=== PATIENT | male | born 1940 | race Caucasian/White ===

== ENCOUNTER 2020-01-30 10:47 | Outpatient (CLI) | payer MEDICARE, OTHER | END 2020-01-30 10:48 | disposition home or self-care (01) | LOC: CTENTCT 10:47 | PROVIDERS: ATTEND Specialist | DX: J32.1 Chronic frontal sinusitis (principal) | CPT/HCPCS: 70486 ==

== ENCOUNTER 2020-02-02 07:49 | Outpatient (CLI) | payer MEDICARE, OTHER ==
[2020-02-02 16:47] LABS: Hemoglobin 15.7 g/dL (14.0-18.0)
[2020-02-02 17:24] LABS: Anion Gap 15 mmol/L (10-20); BUN (Urea Nitrogen) 13 mg/dL (8.4-25.7); Calc. Creatinine Clearance 0 mL/min (70-130); Calcium 8.9 mg/dL (7.8-10.44); Carbon Dioxide 22 mmol/L (23-31); Chloride 102 mmol/L (98-107); Estimated GFR-MDRD Greater than 90; Glucose 97 mg/dL (83-110); Potassium 4.1 mmol/L (3.5-5.1); Sodium 135 mmol/L (136-145)
[2020-02-03 12:15] LABS: SARS-CoV-2 MS2 Positive; SARS-CoV-2 N Gene Negative; SARS-CoV-2 S Gene Negative; SARS-CoV-2 by NAA Not Detected (NotDetected); SARS-CoV-2 orf1ab Negative
== END 2020-02-02 07:50 | disposition home or self-care (01) ==
LOC: LABBT 07:49
PROVIDERS: ATTEND Specialist
DX: Z01.812 Encounter for preprocedural laboratory examination (principal); Z11.59 Encounter for screening for other viral diseases; J32.1 Chronic frontal sinusitis
CPT/HCPCS: 80048; 85014; 85018; 93005; U0003; 87635; 93010

== ENCOUNTER 2020-03-11 12:24 | Outpatient (CLI) | payer MEDICARE, OTHER ==
[2020-03-11] MEDS ORDERED: Iopamidol-370 76% 500 ML 1 ML ONE (13:32)
--- NOTE | 2020-03-11 14:50 | CT ---
CT arteriogram neck with IV contrast and 3-D imaging HISTORY: Carotid stenosis. Prior endarterectomy. FINDINGS: Calcification at the aortic arch with normal branching of the great vessels. Good flow into each carotid and vertebral system. 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 At the right carotid bifurcation, dense calcified plaque is present without significant stenosis. Postoperative changes of the left carotid bifurcation present. Within the proximal ICA, there is mild calcification and irregular noncalcified plaque, narrowing the lumen to approximately 0.3 cm. Stenosis estimated at 70%. Postoperative changes of the maxillary sinuses are apparent. There are emphysematous changes at the l osmel apices. Within the left upper lobe medially, adjacent to the apex of the aortic arch is a soft tissue density slightly spiculated parenchymal lung nodule that is 1.4 cm x 1.1 cm diameters. IMPRESSION : Prior left carotid endarterectomy with short segment focus of ICA moderate stenosis, estimated at 70% . Right internal carotid artery is patent. Short segment focus of high-grade stenosis within the proximal right subclavian artery. Spiculated left upper lobe lung mass 1.[address] chest with IV contrast would be the appropr iate next step for evaluation of the mediastinum and for other lesions.
== END 2020-03-11 12:25 | disposition home or self-care (01) ==
LOC: BICCT 12:24
PROVIDERS: ATTEND Thoracic Surgery (Cardiothoracic Vascular Surgery)
DX: I65.22 Occlusion and stenosis of left carotid artery (principal); R91.8 Other nonspecific abnormal finding of lung field
CPT/HCPCS: 70498; Q9967

== ENCOUNTER 2020-04-12 08:03 | Outpatient (CLI) | payer MEDICARE, OTHER ==
--- NOTE | 2020-04-12 18:15 | EKG ---
Test Reason : Blood Pressure : / mmHG Vent. Rate : 096 BPM Atrial Rate : 096 BPM P-R Int : 198 ms QRS Dur : 102 ms QT Int : 346 ms P-R-T Axes : -10 -71 081 degrees QTc Int : 437 ms Normal sinus rhythm Left anterior fascicular block Leftward axis Poor anterior R wave progression Abnormal ECG When compared with ECG of 02-FEB-2020 14:05, No significant change was found Confirmed by DR. Chris VASQUEZ ([id number]) on 04/12/2020 6:15:14 PM Referred By: JOSHUA Confirmed By:DR. Chris VASQUEZ
[2020-04-12 18:16] LABS: Hemoglobin 14.3 g/dL (14.0-18.0)
[2020-04-12 19:08] LABS: Anion Gap 15 mmol/L (10-20); BUN (Urea Nitrogen) 20 mg/dL (8.4-25.7); Calc. Creatinine Clearance 0 mL/min (70-130); Calcium 9.2 mg/dL (7.8-10.44); Carbon Dioxide 27 mmol/L (23-31); Chloride 98 mmol/L (98-107); Estimated GFR-MDRD 65; Glucose 190 mg/dL (83-110); Potassium 4.6 mmol/L (3.5-5.1); Sodium 135 mmol/L (136-145)
[2020-04-13 16:20] LABS: SARS-CoV-2 MS2 Positive; SARS-CoV-2 N Gene Negative; SARS-CoV-2 S Gene Negative; SARS-CoV-2 by NAA Not Detected (NotDetected); SARS-CoV-2 orf1ab Negative
== END 2020-04-12 08:04 | disposition home or self-care (01) ==
LOC: LABBT 08:03
PROVIDERS: ATTEND Specialist
DX: Z01.818 Encounter for other preprocedural examination (principal); Z20.828 Contact with and (suspected) exposure to other viral communicable diseases; J32.1 Chronic frontal sinusitis
CPT/HCPCS: 80048; 85014; 85018; 93005; U0003; 87635; 93010

== ENCOUNTER 2020-04-15 06:37 | Day surgery (SDC) | payer MEDICARE, OTHER ==
[2020-04-13 10:22] VITALS: BMI 26.2
[2020-04-15] MEDS ORDERED: AFRIN NASAL MIST 15 ML BOT ONE ×2 (07:58→08:28)
[2020-04-15] MEDS ORDERED: Lidocaine 1% w/Epinephrine 1:100K 20 ML VIAL ONE (08:28)
[2020-04-15] MEDS ORDERED: EPINEPHrine 1 MG/ML AMP ONE (08:28)
[2020-04-15] MEDS ORDERED: Fentanyl 100 MCG/2 ML VIAL ONE (08:32)
[2020-04-15] MEDS ORDERED: Rocuronium Bromide 10 MG/ML (10ML VIAL) ONE (09:49)
[2020-04-15] MEDS ORDERED: PHENYLEPHRINE-NS 100 MCG/ML 10 ML SYRINGE ONE (09:49)
[2020-04-15] MEDS ORDERED: PROPOFOL 200 MG/20 ML VIAL ONE (09:49)
[2020-04-15] MEDS ORDERED: EPHEDRINE 25 MG/5 ML SYRINGE ONE (09:49)
[2020-04-15] MEDS ORDERED: Lidocaine 1% PF 5 ML VIAL ONE (09:49)
[2020-04-15] MEDS ORDERED: Dexamethasone 20 MG/5 ML VIAL ONE (09:49)
[2020-04-15] MEDS ORDERED: Ondansetron PF 4 MG/2 ML Vial ONE (09:49)
[2020-04-15] MEDS ORDERED: Glycopyrrolate 0.2 MG/ML 5 ML SYRINGE ONE (09:49)
[2020-04-15] MEDS ORDERED: traMADol HCl 50 MG TAB ONE (12:14)
--- NOTE | 2020-04-16 13:42 | OP ---
DATE OF PROCEDURE: 04/15/2020 PREOPERATIVE DIAGNOSES: 1. Right orbital abscess. 2. Bilateral frontal sinusitis. PROCEDURE PERFORMED: 1. Incision and drainage of right orbital abscess via endoscopic approach. 2. Bilateral frontal sinusotomy. 3. Bilateral modified Lothrop procedure. 4. Stereotactic image guidance. BRIEF HISTORY: Mr. 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 Following previous destructive traditional sinus surgery with resection of middle turbinates and extensive postoperative scarring, multiple course of antibiotics were unsuccessful in achieving any relief. PROCEDURE IN DETAIL: After consent was obtained, the patient was identified, brought to the operating room, and placed on table in the supine position. General endotracheal anesthesia was obtained and the patient was positioned for surgery. Topical Afrin application followed by 1% lidocaine with 1:200,000 epinephrine. We also placed nasal pledgets saturated with adrenaline for further vasoconstriction. With the fusion stereotactic image guidance was validated, we examined the nose intranasally. The landmarks were absent and anatomy was delineated using the landmarks, we made incisions at the bony crest and ultimately drilled approximately 1 cm through scar new bone formation until ultimately the frontal sinus was encountered on the left. There was some purulence that was encountered and what appeared to be a previous trephination procedure from the orbit that was the left orbit. We then placed steroid-impregnated stents and propel stents within the new enlarged ostia and continued the dissection medially to enlarge the natural os of the frontal sinus. We then turned our attention to the contralateral side where similar findings were encountered. Again under stereotactic imaging, we identified our drill points and then went ahead and drilled and scalloped out the frontal recess. Ultimately, we were able to enter through the bone into the frontal recess where copious amounts of purulent foul-smelling purulence were encountered. Massaging the eye ultimately decompressed the orbit and emptied the purulent contents into the nasal cavity. Again with the cutting bur, we were able to enlarge the frontal os and ended it medially as well. Propel stents were then placed in the natural os to facilitate healing and prevent restenosis. Cultures were sent for identification and sensitivities. The patient was awakened, extubated, and taken to the recovery room . Job ID: [id number]
== END 2020-04-15 12:40 | disposition home or self-care (01) ==
LOC: SDC 06:37
PROVIDERS: ATTEND Specialist
PROC: 8E09XBZ Computer Assisted Procedure of Head and Neck Region (ICD-10-PCS; principal; 2020-04-15)
PROC: 09BT8ZZ Excision of Left Frontal Sinus, Via Natural or Artificial Opening Endoscopic (ICD-10-PCS; 2020-04-15)
PROC: 09BS8ZZ Excision of Right Frontal Sinus, Via Natural or Artificial Opening Endoscopic (ICD-10-PCS; 2020-04-15)
DX: J32.1 Chronic frontal sinusitis (principal); H05.011 Cellulitis of right orbit; I10 Essential (primary) hypertension; Z79.82 Long term (current) use of aspirin; Z79.899 Other long term (current) drug therapy; Z88.0 Allergy status to penicillin
CPT/HCPCS: 31276; 31299; 61782; 87070; 87075; 87076; 87077; 87186; 87205; C2625; J0171; J1100; J2405; J2704; J3010

== ENCOUNTER 2020-08-12 08:05 | Outpatient (CLI) | payer MEDICARE, OTHER ==
--- NOTE | 2020-08-12 10:41 | CT ---
CT CHEST WITHOUT CONTRAST: Date: 08/12/2020 INDICATION: Follow-up nodule noted in the left apical region on recent CT angio neck study of 020. Comparison made to CTA neck of 03/11/2020 which revealed a 1.2 cm nodule medial left upper lung. FINDINGS: Lungs show chronic changes. There is central lobar emphysematous changes bilaterally. Again noted is a 1.2 cm solid nodular mass in the left upper lobe medially abutting the aortic arch. This appears unchanged from the 03/11/2020 study. There are scattered small calcified granulomas in both lungs measuring in the 4-5 mm range. Mild interstitial prominence peripherally. No effusion. No inflammatory infiltrate. No other pulmonar y mass. Mediastinum shows nonspecific lymph nodes without evidence of adenopathy. Atherosclerotic calcificati on in the thoracic aorta and coronary arteries. The osseous structures are unremarkable with degenerative changes in the spine. The vertebral bodies maintain height and alignment. Images through upper abdomen unremarkable. IMPRESSION: 1. 1.2 cm solid nodular mass left upper lobe medially abutting the aortic arch. This is stable from 03/11/2020. Recommend PET scan to assess activity within this nodule. 2. Chronic lung changes with emphysematous change. Scattered calcified granuloma are seen bilaterall y. POS: [facility]
== END 2020-08-12 08:06 | disposition home or self-care (01) ==
LOC: CT 08:05
PROVIDERS: ATTEND Thoracic Surgery (Cardiothoracic Vascular Surgery)
DX: R91.1 Solitary pulmonary nodule (principal); R91.8 Other nonspecific abnormal finding of lung field; J43.9 Emphysema, unspecified; J84.10 Pulmonary fibrosis, unspecified
CPT/HCPCS: 71250